=== PATIENT | female | born 1965 | race Caucasian/White ===

== ENCOUNTER → 2020-11-21 10:42 | Outpatient (CLI) | payer OTHER, SELFPAY ==
--- NOTE | ~2020-11-21 | MR_ITS ---
EXAMINATION: MR brain IAC wo/w con EXAM DATE: 11/21/2020 12:14 INDICATION: Left ear hearing loss, pain, radiating, dizziness. Symptoms one year. TECHNIQUE: Multi-sequential, multiplanar MR images of the brain, brainstem, internal auditory canals were obtained without contrast. Whole brain sagittal T1, axial diffusion, gradient echo (T2*), T1, T 2, FLAIR sequences obtained. High resolution coronal 3-D FIESTA, coronal T1 FSE, axial T1 FSPGR of t he internal auditory canals. Patient was then injected with 20 cc Multihance contrast intravenously. Postcontrast axial and coronal T1 weighted whole brain, axial and coronal high resolution T1 IAC seq uences obtained. Comparison is made to prior examination from 11/08/2013. FINDINGS: There is a mass measuring 1.9 x 2.1 cm arising from the left internal auditory canal which is low T1, high T2 signal intensity, filling the internal auditory canal, and demonstrating robust en hancement. 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 This is causing mass effect on the left brachium pontis. There are no areas of restricted diffusion to suggest acute infarction. There is no acute hemorrhage seen on the T2*, a hemosiderin sensitive sequence. There is mild periventricular and subcortical T2/ FLAIR signal hyperintensity, nonspecific but probably related to small vessel ischemic disease (micro angiopathy). There is mild prominence of the sulci and ventricles related to cerebral atrophy. Th ere are no extra-axial collections. Flow voids are seen in the cerebral arteries on the T2-weighted sequences consistent with their expected patency. The orbits are unremarkable. Soft tissue is unrem arkable. IMPRESSION: 1. 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 2. Mild age related findings. Reviewed, dictated and finalized at location B. IMPRESSION: 1. 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 2. Mild age related findings.
[2020-11-21 11:33] LABS: Estimated Glomerular Filt Rate > 60
== END ==
PROVIDERS: PCP Internal Medicine
DX: H90.5 Unspecified sensorineural hearing loss (principal)
CPT/HCPCS: 70553; A9577

== ENCOUNTER 2022-11-04 02:00 | Day surgery (SDC) | payer OTHER, SELFPAY ==
[2022-10-29 13:23] VITALS: BMI 45.6
--- NOTE | 2022-11-03 16:35 | PM.HPGS ---
History of Present Illness History of Present Illness Consent: Risks, benefits, and alternatives have been discussed and questions answered. Patient agrees to proceed with procedure. Chief complaint: change in bowel habits,epigastric pain Narrative: Nava Wong is a 57 year old female Referred because of postprandial pain and also a change in her bowel habits. she gets pain across the lower thorax and upper abdomen it is stripe like pattern that may last for a day. She is not vomiting. She had lost weight, about 25 lb after having brain surgery but now has regained 10 lb. Has a good appetite. Her bowel movements however have become extremely loose. There are times when she will take her medication and 3 hours later sees the pills in the toilet. She has the urge to have a bowel movement immediately after meal. She had been having pain in the lower abdomen in both lower quadrants and was treated for diverticulitis last year. That improved but now she is again having pain primarily in the left lower quadrant radiating around the back to her back lb. Review of Systems Review of Systems: All systems reviewed & are unremarkable except as noted in HPI and below PMFSH Social History Social History Smoking status: Former smoker Tobacco type: cigarettes Alcohol intake: current Alcohol use details: 2 times monthly Substance use type: does not use Living arrangements: with family Spiritual care concerns: No Meds Home Medications and Allergies Home Medications Medication Instructions Recorded Confirmed Type bupropion HCl 300 mg 24 hr tablet, 300 mg PO QAM 03/12/20 10/29/22 History extended release cholecalciferol (vitamin D3) 10 10 mcg PO DAILY 03/12/20 10/29/22 History mcg (400 unit) capsule escitalopram oxalate 10 mg tablet 10 mg PO DAILY 03/12/20 10/29/22 History ibuprofen 200 mg capsule 200 mg PO Q6H PRN Pain 03/12/20 10/29/22 History lansoprazole 15 mg capsule,delayed 15 mg PO DAILY PRN Indigestion 03/12/20 10/29/22 History release (Prevacid) lorazepam 2 mg tablet 2 mg PO DAILY PRN Anxiety 03/12/20 10/29/22 History metoprolol tartrate 25 mg tablet 25 mg PO BID 03/12/20 10/29/22 History vitamin B complex (B 1 tablet PO DAILY 03/12/20 10/29/22 History Complex-Vitamin B12 tablet) hydrocodone 7.5 mg-acetaminophen 1 tablet PO BID PRN Pain 10/29/22 10/29/22 History 325 mg tablet mecobalamin (vitamin B12) 5,000 5,000 mcg PO DAILY 10/29/22 10/29/22 History mcg chewable tablet Allergies Allergy/AdvReac Type Severity Reaction Status Date / Time celecoxib Allergy Mild Other Verified 11/04/22 11:07 rofecoxib Allergy Mild Other Verified 11/04/22 11:07 Sulfa (Sulfonamide Allergy Mild Other Verified 11/04/22 11:07 Antibiotics) Exam Const: General: alert Orientation/consciousness: patient oriented x3 Resp: Auscultation: clear to auscultation bilaterally Cardio: Rhythm: regular rhythm GI: GI Palp: Yes Soft to palpation and No Tenderness to palpation present (GI) Neuro: General: patient oriented x3 Assessment and Plan Assessment and plan (1) Epigastric pain: Code(s): R10.13 - Epigastric pain Status: Acute Assessment and Plan: EGD with possible biopsy or dilatation or cautery. (2) Change in bowel habits: Code(s): R19.4 - Change in bowel habit Status: Acute Assessment and Plan: Colonoscopy with possible biopsy or polypectomy or cautery or injection of substances.
[2022-11-04 11:08] VITALS: BP 158/91; PULSE 60; RESP 18; TEMP 36.6; O2SAT 97
--- NOTE | 2022-11-04 12:14 | P.PNAN_ITS ---
Anes - Initial Pre Proc Eval Procedure: Operation Date: 11/04/22 12:30 Proposed Procedures p Esophagogastroduodenoscopy & Colonoscopy - Sarbjit Sultana MD Date/Time: 11/04/22 12:14 Surgeon: Sarbjit Sultana MD Pre Op Diagnosis: change in bowel habits,epigastric pain Patient Data Age: 57 Gender: F Height: 1.73 m Weight: 133.4 kg Last Vital Signs Temp 97.9 F 11/04/22 11:08 Pulse 60 11/04/22 11:08 Resp 18 11/04/22 11:08 BP 158/91 H 11/04/22 11:08 Pulse Ox 97 11/04/22 11:08 O2 Del Method Room Air 11/04/22 11:08 Allergies Allergy/AdvReac Type Severity Reaction Status Date / Time celecoxib Allergy Mild Other Verified 11/04/22 11:07 rofecoxib Allergy Mild Other Verified 11/04/22 11:07 Sulfa (Sulfonamide Allergy Mild Other Verified 11/04/22 11:07 Antibiotics) Home Medications Medication Instructions Recorded Confirmed Type bupropion HCl 300 mg 24 hr tablet, 300 mg PO QAM 03/12/20 10/29/22 History extended release cholecalciferol (vitamin D3) 10 10 mcg PO DAILY 03/12/20 10/29/22 History mcg (400 unit) capsule escitalopram oxalate 10 mg tablet 10 mg PO DAILY 03/12/20 10/29/22 History ibuprofen 200 mg capsule 200 mg PO Q6H PRN Pain 03/12/20 10/29/22 History lansoprazole 15 mg capsule,delayed 15 mg PO DAILY PRN Indigestion 03/12/20 10/29/22 History release (Prevacid) lorazepam 2 mg tablet 2 mg PO DAILY PRN Anxiety 03/12/20 10/29/22 History metoprolol tartrate 25 mg tablet 25 mg PO BID 03/12/20 10/29/22 History vitamin B complex (B 1 tablet PO DAILY 03/12/20 10/29/22 History Complex-Vitamin B12 tablet) hydrocodone 7.5 mg-acetaminophen 1 tablet PO BID PRN Pain 10/29/22 10/29/22 History 325 mg tablet mecobalamin (vitamin B12) 5,000 5,000 mcg PO DAILY 10/29/22 10/29/22 History mcg chewable tablet Patient hx anesthesia problems: none Family hx anesthesia problems: none Results Review: All pre-operative results and documents have been reviewed as part of the pre- operative evaluation. [facility] Social History Social History Smoking status: Former smoker Tobacco type: cigarettes Alcohol intake: current Alcohol use details: 2 times monthly Substance use type: does not use Living arrangements: with family Spiritual care concerns: No Anes - Eval Final PreProcedure Day of Procedure 11/04/22 12:14 Patient weight: morbidly obese Heart: regular rate and rhythm Lungs: clear to auscultation Airway: Mallampati scale class II Neurological: alert and oriented Last oral intake: >/= 8 hours ASA classification: III Emergent: no Anesthetic plan: proceed Anesthesia type and monitoring: general GIVS and standard monitoring Results Review: All pre-operative results and documents have been reviewed as part of the pre- operative evaluation. Informed Consent: The patient's anesthetic plan and its attendant risks and benefits were discussed with the patient/family/POA. Questions were solicited and answers provided to the satisfaction of the patient/family/POA.
[2022-11-04] MEDS: SIMETHICONE ORAL SUSPENSION 20 MG/0.3 ML 30 ML BOTTLE 0.6 ML IRRIGATION (12:32)
--- NOTE | 2022-11-04 12:39 | SUR.OPER ---
EGD: started at 1228. Colonoscopy began at 1239.
[2022-11-04 12:55] VITALS: BP 109/66; PULSE 57; RESP 15; O2SAT 97
[2022-11-04] MEDS: LACTATED RINGERS 1,000 ML 150 ML IV CONT (12:55)
[2022-11-04 13:05] VITALS: BP 117/61; PULSE 55; RESP 15; O2SAT 100
[2022-11-04 13:15] VITALS: BP 143/84; PULSE 55; RESP 13; O2SAT 99
== END 2022-11-04 13:25 | disposition home or self-care (01) ==
PROVIDERS: PCP Internal Medicine; Visit Provider Internal Medicine Gastroenterology
PROC: 0DJ08ZZ Inspection of Upper Intestinal Tract, Via Natural or Artificial Opening Endoscopic (ICD-10-PCS; CPT 43235; principal; 2022-11-04 12:30)
DX: R19.7 Diarrhea, unspecified (principal); K57.30 Diverticulosis of large intestine without perforation or abscess without bleeding; K64.8 Other hemorrhoids; K21.9 Gastro-esophageal reflux disease without esophagitis; Z87.891 Personal history of nicotine dependence; E66.01 Morbid (severe) obesity due to excess calories; Z68.41 Body mass index [BMI] 40.0-44.9, adult
CPT/HCPCS: 45380; 43239; 87081; 88305; J2704; J7120